=== PATIENT | male | born 1985 | race Caucasian/White ===

== ENCOUNTER 2020-04-25 17:42 | Emergency (ER) | payer BC ==
[2020-04-25] MEDS ORDERED: Take Home: Sulfamethoxazole/Trimethoprim 800-160 MG Tab, 2 Tab Pack PO ONE (18:14)
[2020-04-25] MEDS ORDERED: Take Home: Acetaminophen/HYDROcodone 325-5 MG, 5 Tab Pack PO ONE (18:14)
--- NOTE | 2020-04-25 18:27 | EDM.PDOC ---
ED HPI GENERAL MEDICAL PROBLEM - General Chief Complaint: General Stated Complaint: TAIL BONE INJURY Time Seen by Provider: 04/25/20 17:50 Source of Information: Reports: Patient History Limitations: Reports: No Limitations - History of Present Illness INITIAL COMMENTS - FREE TEXT/NARRATIVE: Pt. presents to ER with complaints of bite to his upper buttock area. Pt. states that he was tubing last weekend. He states that he hit his tailbone on a rock but denies any pain to the area following this. He states that he also sustained an insect bite to this area later. He states that, over time, he has developed increased discomfort and swelling to the area. Pt. states that the pain did not start until last night, and is associated with some edema. Denies any fever or chills. No abdominal pain. He states that the area is exquisitely tender to palpation. Onset Date: 04/23/20 Location: Reports: Back, Pelvis - Related Data Allergies Allergy/AdvReac Type Severity Reaction Status Date / Time No Known Allergies Allergy Verified 04/25/20 18:14 Home Meds: Home Meds . [No Known Home Meds] 04/25/20 [History] Past Medical History - Past Health History Medical/Surgical History: Denies Medical/Surgical History Social & Family History - Tobacco Use Smoking Status *Q: Never Smoker ED ROS GENERAL - Review of Systems Review Of Systems: See Below Constitutional: Reports: No Symptoms HEENT: Reports: No Symptoms Respiratory: Reports: No Symptoms Cardiovascular: Reports: No Symptoms Endocrine: Reports: No Symptoms GI/Abdominal: Reports: No Symptoms : Reports: No Symptoms Musculoskeletal: Reports: Back Pain Skin: Reports: Other (insect bite to upper buttock area.) Neurological: Reports: No Symptoms Psychiatric: Reports: No Symptoms Hematologic/Lymphatic: Reports: No Symptoms Immunologic: Reports: No Symptoms ED EXAM, GENERAL - Physical Exam Exam: See Below Exam Limited By: No Limitations General Appearance: Alert, WD/WN, No Apparent Distress Back Exam: Normal Inspection, Full Range of Motion, Other (evidence of recent insect bite with what appears to be abrasion/excoriation of the lesion with some mild edema to the area, consistent with cellulitis to cleft. No obvious pilonidal abscess noted.) Course - Vital Signs Last Recorded V/S: Last Vital Signs Temp 36.8 C 04/25/20 17:50 Pulse 69 04/25/20 17:50 Resp 16 04/25/20 17:50 BP 133/92 H 04/25/20 17:50 Pulse Ox 99 04/25/20 17:50 - Orders/Labs/Meds Meds: Medications Discontinued Medications Generic Name Dose Route Start Last Admin Trade Name Gregg PRN Reason Stop Dose Admin Hydrocodone Bitart/Acetaminophen 1 packet 04/25/20 18:14 Take Home: Acetam/Hydrocodon 325-5 Mg, 5 Pack PO 04/25/20 18:15 ONETIME ONE Trimethoprim/Sulfamethoxazole 1 packet 04/25/20 18:14 Take Home: Sulfameth/Trimet 800-160mg, 2 Pack PO 04/25/20 18:15 ONETIME ONE Departure - Departure Time of Disposition: 18:27 Disposition: Home, Self-Care 01 Clinical Impression: Cellulitis - Discharge Information Instructions: Acetaminophen; Hydrocodone tablets or capsules, Cellulitis, Adult, Sulfamethoxazole; Trimethoprim, SMX-TMP tablets, Probiotics Forms: ED Department Discharge Additional Instructions: Bactrim DS 1 twice daily for 10 days [place] 5/325mg 1 every 4-6 hours as needed for pain Ibuprofen 200mg 1 tab three times daily as needed for pain Recheck in clinic in 7-10 days, sooner if not gradually improving Sepsis Event Note (ED) - Evaluation Sepsis Screening Result: No Definite Risk - Focused Exam Vital Signs: Vital Signs Temp Pulse Resp BP Pulse Ox 04/25/20 17:50 36.8 C 69 16 133/92 H 99 - Problem List Review Problem List Initiated/Reviewed/Updated: Yes - Assessment/Plan Plan: No obvious abscess formation at this time. Will start the patient on bactrim DS 1 twice daily for 10 days. Also started him on a course of oral norco 5/325mg. Advised to follow-up in clinic in the next week, sooner if not gradually improving.
== END 2020-04-25 18:30 | disposition home or self-care (01) ==
LOC: VM.ED 17:42
DX: L03.317 Cellulitis of buttock (principal)
CPT/HCPCS: 99283; 99283-GF; A9270-GY